=== PATIENT | female | born 2005 | race Caucasian/White ===

== ENCOUNTER 2023-09-24 13:02 | Inpatient (IN) ==
[2023-09-24] MEDS ORDERED: SODIUM CHLORIDE 0.9% 1,000 ML IV ONE ×2 (13:44→16:29)
[2023-09-24] MEDS ORDERED: LORazepam 2 MG/1 ML VIAL IV STA ×2 (13:50→21:07)
--- NOTE | 2023-09-24 13:54 | Emergency Department Note ---
Impression & Plan Rhabdomyolysis, Elevated LFTs, Anxiety ED Provider Note Name: BLANCA CABEZAS Age: 18 Sex: Female Arrives Via: Walk-In Informant: Patient, friend, mother (via phone until mother arrived several hours later) ED Provider: Satinder Penaloza MD Chief Complaint: Bilateral leg and back pain Impression: As per impression above Medical Decision Making: Very pleasant 18-year-old female with history of anxiety arrives for evaluation of severe bilateral leg pain and back pain. She has been tachycardic on arrival and by examination is quite dehydrated. She also is quite anxious about all of this. She was given some IV Ativan see that would help with spasm though continues to have discomfort. She ended up receiving 2 more doses of IV Dilaudid for pain control with relatively good result. She was given initial liter of fluid followed by a liter of little while later. Initial labs took some time to return as her CK was so significantly elevated and had to be dilated. Given the CK of 45,000 this is consistent with rhabdomyolysis. Main etiology is likely her doing a spin class 2 days ago along with possibly some underlying viral like illness and dehydration to begin with. Had a long discussion with the patient as well as friend and mother once she arrived regarding plan for hospitalization IV fluids and monitoring. Hospitalist in to evaluate as well. I do not feel patient's symptoms are consistent with PE or DVT and there is no evidence of dissection either. She is not having any evidence of bacterial infection nor does she have current evidence of renal injury. Triage/Nursing Notes reviewed by Me Differential:Rhabdomyolysis, myositis, Guillain-Werner, vascular issue, electrolyte imbalance, renal failure, sepsis, many other pathologies considered Vital Signs: reviewed and remarkable for tachycardia Interventions: Normal saline bolus 1 L IV x2, Ativan 1 mg IV, Dilaudid 1 mg IV x2 Labs:ED labs Reviewed by me and remarkable for CK 45,000 other laboratory work-up benign Cardiac/Tele Monitoring: Cardiac Monitoring: An Order was placed for continuous cardiac monitoring. The monitor shows a rate of 110 with a sinus tach rhythm. Consults:Dr. Bowen of the [facility] service Plan: Disposition:Hospitalization. Condition: Good History of Present Illness: 18-year-old female arrives for evaluation of muscle spasms and pain. Patient states that she was spinning class II days ago. Following this she was having pretty bad muscle cramping. Today noticed increasing blood in her urine. Associated with mild nausea. Muscles are quite painful in her legs. Denies any specific bilateral back pain/flank pain. Denies any vomiting, chest pain, shortness of breath, fevers, chills, runny nose, palpitations, syncope or other concerning signs or symptoms. No significant past medical history other than she had sepsis due to a labial abscess x2. Past Medical History:No significant past medical history though does note previous hospitalization for sepsis Home Medications:No daily medications Allergies:No known drug allergy Vitals:Blood Pressure: 133/76, Pulse 110, RR 16, T 36.5C, O2 100% on RA Physical Exam: GENERAL: Patient is anxious appearing and in mild distress. RESPIRATORY: No dyspnea. Clear to auscultation and equal bilaterally. CARDIOVASCULAR: Tachycardia.No murmur appreciated. GASTROINTESTINAL: Abdomen soft, non-tender, no peritonitis. BACK: No midline tenderness, no CVA tenderness EXTREMITIES: Normal motion all extremities, no cyanosis, no edema. NEUROLOGIC: Alert and oriented. No focal neurologic deficits appreciated SKIN: No rash, no jaundice, no diaphoresis. PSYCH: Appropriate GCS: 15 ED Course: Times/Reassessments: Multiple repeat evaluation patient stable with waxing and waning discomfort worse with trying to ambulate. She and mother are comfortable with plan for hospitalization Satinder Penaloza MD Past Med/Surg History Social History Smoking Status: Never smoker Preferred Language: Khmer Communication Ability: Effective Assistive Devices: None Allergies Allergies Allergy/AdvReac Type Severity Reaction Status Date / Time Penicillins Allergy Unknown CHILDHOOD Unverified 09/24/23 14:24 ALLERGY Home Meds Home Medications Medication Instructions Recorded Confirmed acetaminophen 500 mg tablet 500 mg PO Q6H PRN Pain 09/24/23 09/24/23 ibuprofen 200 mg tablet 200 mg PO Q6H PRN Pain 09/24/23 09/24/23 magnesium 250 mg tablet 250 mg PO DAILY 09/24/23 09/24/23 Results & Data (ED) Vital Signs Vital Signs - 24 hr 09/24/23 14:42 09/24/23 14:45 09/24/23 14:46 Pulse Rate 102 H Pulse Rate [Finger] 98 H Pulse Rate from SpO2 Sensor 100 H Pulse Rhythm [Finger] Regular Respiratory Rate 19 18 Respiratory Effort / Characteristics Non-Labored Spontaneous Respiratory Depth Normal Respiratory Pattern Regular Blood Pressure 144/93 H 145/88 H Blood Pressure [Left Arm] 145/88 H Blood Pressure Mean 107 107 Blood Pressure Mean [Left Arm] 107 Blood Pressure Position [Left Arm] Sitting Pulse Oximetry 100 99 Oxygen Delivery Method Room Air 09/24/23 15:00 09/24/23 16:00 Pulse Rate 93 H 95 H Pulse Rate [Finger] Pulse Rate from SpO2 Sensor 93 H 93 H Pulse Rhythm [Finger] Respiratory Rate 19 24 Respiratory Effort / Characteristics Respiratory Depth Respiratory Pattern Blood Pressure 127/80 Blood Pressure [Left Arm] Blood Pressure Mean 95 Blood Pressure Mean [Left Arm] Blood Pressure Position [Left Arm] Pulse Oximetry 97 98 Oxygen Delivery Method Laboratory Data 09/25/23 04:32 09/25/23 04:32 Lab Results 09/24/23 Range/Units 13:34 WBC 13.66 H (4.8-10.8) K/ul RBC 4.98 (4.20-5.40) M/uL Hgb 15.6 (12.0-16.0) g/dl Hct 44.3 (37.0-47.0) % MCV 89.0 (80.0-100.0) fL MCH 31.3 (25.0-34.0) pg MCHC 35.2 (32.0-36.0) g/dL RDW Std Deviation 39.0 (36.4-46.3) fL RDW Coeff of Jeff 12.0 (11.5-14.5) % Plt Count 337 (130-400) K/uL MPV 11.1 (9.4-12.4) fL Immature Gran % (Auto) 0.6 % Neut % (Auto) 74.5 % Lymph % (Auto) 17.7 % [place] % (Auto) 6.6 % Eos % (Auto) 0.2 % Baso % (Auto) 0.4 % Neut # (Auto) 10.17 H (1.40-6.50) K/uL Lymph # (Auto) 2.42 (1.20-3.40) K/uL [place] # (Auto) 0.90 H (0.11-0.59) K/uL Eos # (Auto) 0.03 (0.00-0.50) K/uL Baso # (Auto) 0.06 (0.00-0.20) K/uL Immature Gran # (Auto) 0.08 (0.01-0.20) K/uL PT 11.0 (9.0-12.0) Seconds INR 1.0 (0.9-1.1) APTT 27.8 (21.0-31.0) Seconds PTT Ratio 1.0 Sodium 137 (136-145) mmol/L Potassium 3.9 (3.5-5.1) mmol/L Chloride 103 (98-107) mmol/L Carbon Dioxide 23 (21-32) mmol/L Anion Gap 11 (3-11) BUN 8 (6-23) mg/dl Creatinine 0.79 (0.6-1.2) mg/dl Est Cr Clr Drug Dosing 129.5 ml/min Est GFR ( Amer) 124.9 ml/min Est GFR (Non-Af Amer) 107.8 ml/min BUN/Creatinine Ratio 10.1 (10-20) Glucose 89 (70-99(Fasting)) mg/dl Calcium 9.7 (8.6-10.3) mg/dl Magnesium 2.0 (1.7-2.4) mg/dl Total Bilirubin 1.6 H (0.2-1.0) mg/dl Direct Bilirubin 0.2 (0-0.2) mg/dl AST 679 H (13-39) U/L ALT 106 H (7-52) U/L Alkaline Phosphatase 67 (34-104) U/L Total Creatine Kinase 34898 H (26-192) U/L Troponin I High Sens 8.4 (0-14) pg/ml Total Protein 8.3 (6.0-8.3) gm/dl Albumin 5.0 (3.4-5.0) gm/dl Urine Color Brown Urine Appearance Slightly Cloudy (Clear) Urine pH (4.5-7.5) Ur Specific [place] 1.026 (1.000-1.030) Urine Protein (Negative) Urine Glucose (UA) (Negative) Urine Ketones (Negative) Urine Blood (Negative) Urine Nitrite (Negative) Urine Bilirubin (Negative) Urine Urobilinogen (Negative) Ur Leukocyte Esterase (Negative) Urine RBC 0-4 (0-4) /hpf Urine WBC 5-10 H (0-5) /hpf Ur Epithelial Cells 20-30 H (0-5) /lpf Urine Bacteria 1+ H (Negative) Granular Casts 1-5 H (0) /lpf Administered Medications Hydromorphone HCl (Hydromorphone Inj 0.5 Mg/0.5 Ml Syr) 0.5 mg IV Q4H PRN PRN Reason: Pain Scale 4,5,6 Stop: 10/09/23 11:06 Last Admin: 09/25/23 13:28 Dose: 0.5 mg Documented By: SARITA Lactated Ringer's (Lr) 1,000 mls @ 250 mls/hr IV .Q4H JEANE Stop: 10/25/23 08:14 Last Admin: 09/25/23 13:29 Dose: 250 mls/hr Documented By: Infusion: 09/25/23 13:22 Dose: Infused Documented By: Admin: 09/25/23 09:22 Dose: 250 mls/hr Documented By: SARITA Ondansetron HCl (Ondansetron Inj 2 Mg/Ml 2 Ml Vial) 4 mg IV Q6H PRN PRN Reason: Nausea Stop: 10/25/23 11:06 Last Admin: 09/25/23 11:25 Dose: 4 mg Documented By: SARITA Discontinued Medications Hydromorphone HCl (Hydromorphone Inj 1 Mg/Ml Syringe) 1 mg IV NOW STA Stop: 09/24/23 14:39 Last Admin: 09/24/23 14:42 Dose: 1 mg Documented By: MECHELLE Hydromorphone HCl (Hydromorphone Inj 1 Mg/Ml Syringe) 1 mg IV NOW STA Stop: 09/24/23 16:00 Last Admin: 09/24/23 16:13 Dose: 1 mg Documented By: MAJO Sodium Chloride (Nss) 1,000 mls @ 999 mls/hr IV .Q1H1M ONE Stop: 09/24/23 14:44 Last Infusion: 09/24/23 15:17 Dose: Infused Documented By: Admin: 09/24/23 13:58 Dose: 999 mls/hr Documented By: MECHELLE Sodium Chloride (Nss) 1,000 mls @ 999 mls/hr IV .Q1H1M ONE Stop: 09/24/23 17:29 Last Infusion: 09/24/23 18:06 Dose: Infused Documented By: Admin: 09/24/23 16:57 Dose: 999 mls/hr Documented By: MAJO Lactated Ringer's (Lr) 1,000 mls @ 150 mls/hr IV .Q6H40M JEANE Stop: 09/25/23 08:00 Last Infusion: 09/25/23 14:08 Dose: Infused Documented By: Admin: 09/25/23 07:27 Dose: 150 mls/hr Documented By: Infusion: 09/25/23 07:27 Dose: Infused Documented By: Admin: 09/25/23 01:16 Dose: 150 mls/hr Documented By: Infusion: 09/25/23 01:11 Dose: Infused Documented By: Admin: 09/24/23 18:30 Dose: 150 mls/hr Documented By: VANIA Lorazepam (Lorazepam 2 Mg/1 Ml Vial) 1 mg IV NOW STA Stop: 09/24/23 13:51 Last Admin: 09/24/23 14:05 Dose: 1 mg Documented By: MECHELLE Lorazepam (Lorazepam 2 Mg/1 Ml Vial) 0.5 mg IV NOW STA Stop: 09/24/23 21:08 Last Admin: 09/24/23 21:42 Dose: 0.5 mg Documented By: EM Morphine Sulfate (Morphine Sulfate 2 Mg/Ml [place]) 2 mg IV Q4H PRN PRN Reason: Pain (5+) Stop: 10/08/23 18:29 Last Admin: 09/25/23 09:24 Dose: 2 mg Documented By: Admin: 09/25/23 04:59 Dose: 2 mg Documented By: Admin: 09/25/23 01:18 Dose: 2 mg Documented By: Admin: 09/24/23 19:40 Dose: 2 mg Documented By: EM Ondansetron HCl (Ondansetron Inj 2 Mg/Ml 2 Ml Vial) 4 mg IV NOW STA Stop: 09/24/23 17:08 Last Admin: 09/24/23 17:12 Dose: 4 mg Documented By: MAJO Discharge Plan Visit Data Chief Complaint: Hematuria Stated Complaint: SEVERE MUSCLE ACHES, HEMATURIA, RHABDOMYOLYSIS? ED Provider: Satinder Penaloza Discharge Problem: Rhabdomyolysis, Elevated LFTs, Anxiety Patient Disposition: Admitted As Inpatient Discharge Instructions Interventions: ED Discharge Assessment Last Done: 09/24/23 18:14
[2023-09-24] MEDS ORDERED: HYDROmorphone INJ 1 MG/ML SYRINGE IV STA ×2 (14:38→15:59)
[2023-09-24 14:46] LABS: Appearance Urine Slightly Cloudy (Clear); Basophils # (auto) 0.06 K/uL (0.00-0.20); Basophils % (auto) 0.4 %; Color Urine Brown; Eosinophils # (auto) 0.03 K/uL (0.00-0.50); Eosinophils % (auto) 0.2 %; Hematocrit (blood only) 44.3 % (37.0-47.0); Hemoglobin 15.6 g/dl (12.0-16.0); Immature Granulocytes # (auto) 0.08 K/uL (0.01-0.20); Immature Granulocytes % (auto) 0.6 %; Lymphocytes # (auto) 2.42 K/uL (1.20-3.40); Lymphocytes % (auto) 17.7 %; Mean Corpuscular Hemoglobin 31.3 pg (25.0-34.0); Mean Corpuscular Hgb Conc 35.2 g/dL (32.0-36.0); Mean Platelet Volume 11.1 fL (9.4-12.4); Monocytes % (auto) 6.6 %; Neutrophils # (auto) 10.17 K/uL (1.40-6.50); Neutrophils % (auto) 74.5 %; Platelet Count 337 K/uL (130-400); Red Blood Count 4.98 M/uL (4.20-5.40); Specific Gravity Urine 1.026 (1.000-1.030); White Blood Count 13.66 K/ul (4.8-10.8)
[2023-09-24 14:49] LABS: Bacteria Urine 1+ (Negative); Epithelial Cell Urine 20-30 /lpf (0-5); RBC Urine 0-4 /hpf (0-4)
[2023-09-24 14:50] LABS: BUN Creatinine Ratio 10.1 (10-20); Calcium 9.7 mg/dl (8.6-10.3); Creatinine Clr Calc Pharmacy 129.5 ml/min; Est GFR (African American) 124.9 ml/min; Est GFR (Non-African American) 107.8 ml/min; Potassium 3.9 mmol/L (3.5-5.1)
[2023-09-24 14:56] LABS: Troponin I High Sensitivity 8.4 pg/ml (0-14)
[2023-09-24 15:03] LABS: Partial Thromboplastin Time 27.8 Seconds (21.0-31.0)
[2023-09-24 16:25] LABS: Bilirubin Direct 0.2 mg/dl (0-0.2); Bilirubin,Total 1.6 mg/dl (0.2-1.0); Total Protein 8.3 gm/dl (6.0-8.3)
--- NOTE | 2023-09-24 16:37 | History & Physical Report ---
Date of Service September 24, 2023 Assessment & Plan (1) Rhabdomyolysis: Plan: -Admit to med/surge -Currently stable with improving leg pain and stable urine output -At this time her current presentation is likely due to her recent spin class on 09/22 after not attending a class for 2+ years -An acute hepatitis panel has been ordered by the ED, will follow -Patient's renal function is WNL, LFT's are currently elevated -Repeat CK is in process as previous draws were too concentrated, will continue to trend CK moving forward -S/P 1L NSS in the ED, 2nd L NSS will be started shortly -Will continue treatment with LR after her 2nd L of NSS is complete -Continue to monitor intake/output q4h -Hold Acetaminophen and NASAID's at this time -Will start BL SCD's for DVT PPX if she can tolerate -Regular diet -AM CBC, CMP, Mag, PT/INR (2) Elevated LFTs: Plan: -Likely multifactorial due to Rhabdo and recent Acetaminophen use for leg pain -Denies abdominal discomfort -Will follow Hepatitis panel ordered by the ED -Denies recent Alcohol use -Continue treatment of rhabdo, hold acetaminophen and other nephrotoxic agents for now -Trend daily LFT's (3) Anxiety: Plan: -Currently denies need for hydroxyzine or Klonopin, will hold for now Plan The patient was discussed with Dr. Bowen at the time of the admission History of Present Illness Chief Complaint: Hematuria, muscle aches Primary Care Provider: [facility] [place] is a 18 year old female with no significant PMH who presented to the [facility] ED on 09/24 from [facility] due to concerns for Rhabdomyolysis. She initially presented to [facility] due to progressive muscle aches and hematuria after attending a spinning class earlier this week. She was initially tachycardic at 110 but otherwise stable. Labs were significant for a leukocytosis of 13 with neutrophil count of 10, stable renal function, total bili of 1.6 with direct bili WNL, AST of 679, ALT of 106, total CK pending due to multiple samples that required increased dilution, and UA with brown color, 1-5 granular casts, 1+ bacteria, 5-10 WBC, and 20-30 epithelial cells. Prior to admission the patient was given 1L NSS, 1mg IV ativan, 2 doses 1mg IV dilaudid, and ordred another 1L NSS. At the time of the exam the patient was sitting in bed in no acute distress with her friend sitting bedside. The patient states that she had been in her normal state of health when she went to a spin class on 09/22. She states that this was the first spine class she has attended in approximately 2 years, the class lasted for approximately 45 min. She states that she had what she would consider a normal amount of LE soreness the following day. Over the past 48 hours she has had increased LE pain/cramping. She has been alternating Tylenol/Ibuprofen over the past 48 hours. She had approximately 4-5 doses of 600-1200 mg Acetaminophen over the past 48 hours. This am she developed gross hematuria/brown urine, prompting her to be evaluated at [facility]. She intermittently vapes nicotine cartridges, occasionally smokes Marijuana, and drinks alcohol approximately 1-2 times a month. She denies any alcohol use this week. He LE pain is much improved compared to arrival and she is having consistent urine output at this time. She is prescribed prn Klonopin and Hydrox yzine but has not used either in multiple weeks. She denies current fever, chills, chest pain, SOB, and pain, vomiting, dysuria, diarrhea, melena, and recent trauma. Please refer to Dr. Bowen's attestation for any changes to the treatment plan Allergies Allergy/AdvReac Type Severity Reaction Status Date / Time Penicillins Allergy Unknown CHILDHOOD Unverified 09/24/23 14:24 ALLERGY Home Medications Medication Instructions Recorded Confirmed Type acetaminophen 500 mg tablet 500 mg PO Q6H PRN Pain 09/24/23 09/24/23 History ibuprofen 200 mg tablet 200 mg PO Q6H PRN Pain 09/24/23 09/24/23 History magnesium 250 mg tablet 250 mg PO DAILY 09/24/23 09/24/23 History Past Med/Surg History Social History Smoking Status: Never smoker Preferred Language: Serbian Physical Exam Physical Exam: Physical Exam: General: In no acute distress, stated age, well-nourished, non-toxic appearing HEENT: Normocephalic, atraumatic, no scleral icterus, pupils around round, symmetrical, and reactive to light, moist mucus membranes, trachea midline, no thyromegaly Chest/Pulm: No respiratory distress, symmetrical chest expansion, clear breath sounds throughout Cardiac: RRR, no murmurs noted Abdomen: Negative for ascites and bruising, normoactive bowel sounds, soft, non-tender to palpation throughout Musculoskeletal: Symmetrical and without signs of acute trauma, upper and lower extremities with full ROM, no atrophy, spasticity, or flaccidity, no significant tenderness to palpation of the [facility] Extremities: Radial, dorsalis pedis, and posterior tibial pulses are intact and symmetrical, no edema noted in the [facility] Skin: Warm, dry, no rashes , lesions, or scars noted Neuro: Alert and oriented to person, place, month, year, and president, no focal defects,no tremors noted Psych: No acute distress, calm and cooperative during the exam Results & Data Results & Data Vital Signs (Past 12 Hours) Vital Signs Temp Pulse Pulse Resp BP BP Pulse Ox 09/24/23 14:46 98 H 18 145/88 H 99 09/24/23 14:14 87 09/24/23 14:02 96 H 18 142/100 H 98 09/24/23 13:11 36.5 C 110 H 16 133/76 100 O2 Del Method 09/24/23 14:46 Room Air 09/24/23 14:14 09/24/23 14:02 Room Air 09/24/23 13:11 Room Air Laboratory Results Abnormal lab results 09/24/23 Range/Units 13:34 WBC 13.66 H (4.8-10.8) K/ul Neut # (Auto) 10.17 H (1.40-6.50) K/uL [place] # (Auto) 0.90 H (0.11-0.59) K/uL Total Bilirubin 1.6 H (0.2-1.0) mg/dl AST 679 H (13-39) U/L ALT 106 H (7-52) U/L Urine WBC 5-10 H (0-5) /hpf Ur Epithelial Cells 20-30 H (0-5) /lpf Urine Bacteria 1+ H (Negative) Granular Casts 1-5 H (0) /lpf ECG Additional Comments: Will obtain at the time of the admission Code Status & VTE Plan Code Status Full code VTE Prophylaxis Plan VTE Prophylaxis will be ordered: Yes Supervising Physician Co-Signing Physician Notes I personally saw and examined the patient. I verified all san points and agree with Rob Garg PA-C with the following exceptions and/or additions: 18 year old female presents to the ER with brown urine. Went to spin class on Thursday and having bilateral thigh pain since then. Brown urine started today. O/E HS RRR, no murmurs, Chest CTAB, Abdo SNT, generalized thigh pain A/P Rhabdomyolysis - LR @ 150ml/hr overnight. Monitor urine output - currently have good UO, plan to match rate of fluids with UO. No calf pain for concern for compartment syndrome. AST/ALT consistent with rhabomyolysis. PG Care Time/CCT Total # of Minutes Spent Total Time Spent with Patient: Total time spent is greater than 50% in coordination of care (as documented) at patient's floor/unit and/or counseling patient: [place] [address] INT INP/OBS CARE 2/55MIN Patient Type New Medical Decision Making Moderate Complexity Diagnoses Rhabdomyolysis M62.82 Elevated LFTs R79.89 Anxiety F41.9
[2023-09-24] MEDS ORDERED: ONDANSETRON INJ 2 MG/ML 2 ML VIAL IV STA (17:07)
[2023-09-24] MEDS: LACTATED RINGER'S 1,000 ML IV SCH (18:30)
[2023-09-24] MEDS: MoRPHine SULFATE 2 MG/ML CARP IV PRN (19:40)
[2023-09-25] MEDS: LACTATED RINGER'S 1,000 ML IV SCH ×6 (01:16→20:43)
[2023-09-25] MEDS: MoRPHine SULFATE 2 MG/ML CARP IV PRN ×3 (01:18→09:24)
[2023-09-25 05:02] LABS: Basophils # (auto) 0.03 K/uL (0.00-0.20); Basophils % (auto) 0.3 %; Eosinophils # (auto) 0.18 K/uL (0.00-0.50); Hematocrit (blood only) 37.1 % (37.0-47.0); Hemoglobin 12.9 g/dl (12.0-16.0); Immature Granulocytes # (auto) 0.05 K/uL (0.01-0.20); Immature Granulocytes % (auto) 0.6 %; Lymphocytes # (auto) 3.06 K/uL (1.20-3.40); Lymphocytes % (auto) 33.8 %; Mean Corpuscular Hemoglobin 31.2 pg (25.0-34.0); Mean Corpuscular Hgb Conc 34.8 g/dL (32.0-36.0); Mean Corpuscular Volume 89.6 fL (80.0-100.0); Mean Platelet Volume 10.5 fL (9.4-12.4); Monocytes # (auto) 0.68 K/uL (0.11-0.59); Monocytes % (auto) 7.5 %; Neutrophils # (auto) 5.06 K/uL (1.40-6.50); Neutrophils % (auto) 55.8 %; Platelet Count 257 K/uL (130-400); RDW Coefficient of Variation 12.2 % (11.5-14.5); RDW Standard Deviation 39.8 fL (36.4-46.3); Red Blood Count 4.14 M/uL (4.20-5.40); White Blood Count 9.06 K/ul (4.8-10.8)
[2023-09-25 05:20] LABS: Prothrombin Time 11.4 Seconds (9.0-12.0)
[2023-09-25 06:10] LABS: Alanine Aminotransferase 132 U/L (7-52); Albumin Globulin Ratio 1.6 (0.9-2); Albumin Level 3.6 gm/dl (3.4-5.0); Alkaline Phosphatase 47 U/L (34-104); Anion Gap 3 (3-11); Aspartate Aminotransferase 787 U/L (13-39); Bilirubin,Total 1.8 mg/dl (0.2-1.0); Blood Urea Nitrogen 6 mg/dl (6-23); Calcium 8.4 mg/dl (8.6-10.3); Carbon Dioxide 26 mmol/L (21-32); Chloride 108 mmol/L (98-107); Creatine Kinase 72800 U/L (26-192); Creatinine Clr Calc Pharmacy 170.5 ml/min; Est GFR (African American) > 150.0 ml/min; Est GFR (Non-African American) 131.2 ml/min; Globulin 2.2 gm/dl (2.5-4.0); Glucose 90 mg/dl (70-99(Fasting)); Potassium 4.4 mmol/L (3.5-5.1); Sodium 137 mmol/L (136-145); Total Protein 5.8 gm/dl (6.0-8.3)
--- NOTE | 2023-09-25 08:06 | Hospitalist Progress Note ---
Date of Service September 25, 2023 Assessment & Plan (1) Rhabdomyolysis: Plan: severe rhabdomyolysis, induced by overexertion at spin class total CK in ED at least 91,000, improved [place] 72[place] [address] today with aggressive IV fluids. currently P creatinine stable was 0.79 at presentation and 0.6 today AST and ALT elevation are from the muscle breakdown rather than from liver injury hyperchloremic after NS resuscitation in ED, agree with changing fluids to LR - ordered 250 mL/h, target UOP of 200-300 mL/h -monitor BMP and CK closely - has been requiring IV morphine for treatment of severe muscle pain - changed to hydromorphone IV for nausea/vomiting, discussed avoiding and trying methocarbamol - no evidence of compartment syndrome (2) Elevated LFTs: Plan: AST/ALT elevated from muscle source liver dysfunction occurs in 25% of cases of rhabdomyolysis of concern was taking acetaminophen and bilirubin is mildly elevated. APAP level was not checked on admission. obtain further history monitor CMP and INR (normal at 1.0), until AST/ALT/bili improving (3) Anxiety: Plan: -Currently denies need for hydroxyzine or Klonopin, will hold for now Plan DVT ppx - SCDs Admission and Anticipated Discharge Date Admission Date: September 24, 2023 Subjective spin class 09/22. alternating APAP and ibuprofen [employer]. presented to urgent care with tea colored urine and muscle soreness. Physical Exam Physical Exam: PHYSICAL EXAMINATION Last 24h vital signs reviewed, see documentation in flowsheet General: comfortable appearing, no distress HEENT: Normocephalic, atraumatic, pupils round and equal, sclerae anicteric, no conjunctival injection, moist mucus membranes Lungs: Normal respiratory effort. Clear to auscultation bilaterally. No RRW Heart: Regular rate and rhythm, no murmurs. No JVD Abdomen: Soft, nontender, nondistended. Bowel sounds present. Extremities: Warm, dry, well-perfused. Thighs are full but not severely swollen, mildly tender when squeezed, calves are not tight or swollen. LE wp and DP pulses intact Neuro: Alert and oriented x 4, face symmetric, moves 4 extremities well Psych: Normal affect and behavior Results & Data Results & Data Vital Signs (Past 12 Hours) Vital Signs Temp Pulse Resp BP Pulse Ox O2 Del Method 09/24/23 23:05 36.4 C L 88 18 119/82 99 Room Air PG Care Time/CCT Total # of Minutes Spent Total Time Spent with Patient: Total time spent is greater than 50% in coordination of care (as documented) at patient's floor/unit and/or counseling patient: Coding Level of Care Code 47428 SUB INP/OBS CARE 3/50MIN Diagnoses Rhabdomyolysis M62.82 Elevated LFTs R79.89 Anxiety F41.9
[2023-09-25] MEDS ORDERED: PROCHLORPERAZINE 5 MG in SYRINGE 4 ML IV PRN (11:13)
[2023-09-25] MEDS: ONDANSETRON INJ 2 MG/ML 2 ML VIAL IV PRN (11:25)
--- NOTE | 2023-09-25 11:42 | Electrocardiogram Report ---
Test Reason : Blood Pressure : / mmHG Vent. Rate : 093 BPM Atrial Rate : 093 BPM P-R Int : 160 ms QRS Dur : 094 ms QT Int : 372 ms P-R-T Axes : 028 093 007 degrees QTc Int : 462 ms Normal sinus rhythm Rightward axis Incomplete right bundle branch block Borderline ECG No previous ECGs available Confirmed by Jhony Sanchez ([id number]) on 09/25/2023 11:42:08 AM Referred By: REFERRED SELF Confirmed By:Georges Sanchez
[2023-09-25] MEDS: HYDROmorphone INJ 0.5 MG/0.5 ML SYR IV PRN ×2 (13:28→20:44)
[2023-09-25] MEDS ORDERED: METHOCARBAMOL 500 MG TABLET PO PRN ×2 (13:30→13:53)
[2023-09-26] MEDS: LACTATED RINGER'S 1,000 ML IV SCH ×5 (00:54→17:03)
[2023-09-26] MEDS: HYDROmorphone INJ 0.5 MG/0.5 ML SYR IV PRN ×5 (00:57→20:02)
[2023-09-26 07:04] LABS: Basophils # (auto) 0.03 K/uL (0.00-0.20); Basophils % (auto) 0.4 %; Eosinophils # (auto) 0.22 K/uL (0.00-0.50); Eosinophils % (auto) 2.6 %; Hematocrit (blood only) 37.8 % (37.0-47.0); Hemoglobin 13.1 g/dl (12.0-16.0); Immature Granulocytes # (auto) 0.05 K/uL (0.01-0.20); Immature Granulocytes % (auto) 0.6 %; Lymphocytes # (auto) 2.51 K/uL (1.20-3.40); Mean Corpuscular Hemoglobin 31.3 pg (25.0-34.0); Mean Corpuscular Hgb Conc 34.7 g/dL (32.0-36.0); Mean Corpuscular Volume 90.4 fL (80.0-100.0); Mean Platelet Volume 10.6 fL (9.4-12.4); Monocytes # (auto) 0.71 K/uL (0.11-0.59); Monocytes % (auto) 8.5 %; Neutrophils # (auto) 4.84 K/uL (1.40-6.50); Neutrophils % (auto) 57.9 %; Platelet Count 249 K/uL (130-400); RDW Coefficient of Variation 11.9 % (11.5-14.5); RDW Standard Deviation 39.3 fL (36.4-46.3); Red Blood Count 4.18 M/uL (4.20-5.40); White Blood Count 8.36 K/ul (4.8-10.8)
[2023-09-26 07:54] LABS: Alanine Aminotransferase 184 U/L (7-52); Albumin Globulin Ratio 1.6 (0.9-2); Albumin Level 3.8 gm/dl (3.4-5.0); Alkaline Phosphatase 47 U/L (34-104); Anion Gap 5 (3-11); Aspartate Aminotransferase 910 U/L (13-39); BUN Creatinine Ratio 6.9 (10-20); Bilirubin,Total 1.7 mg/dl (0.2-1.0); Blood Urea Nitrogen 4 mg/dl (6-23); Calcium 8.9 mg/dl (8.6-10.3); Carbon Dioxide 27 mmol/L (21-32); Chloride 106 mmol/L (98-107); Creatinine Clr Calc Pharmacy 172.7 ml/min; Est GFR (African American) > 150.0 ml/min; Est GFR (Non-African American) 132.7 ml/min; Globulin 2.4 gm/dl (2.5-4.0); Glucose 93 mg/dl (70-99(Fasting)); Potassium 4.2 mmol/L (3.5-5.1); Sodium 138 mmol/L (136-145); Total Protein 6.2 gm/dl (6.0-8.3)
[2023-09-26 07:55] LABS: INR 1.1 (0.9-1.1); Prothrombin Time 11.5 Seconds (9.0-12.0)
[2023-09-26 08:32] LABS: Creatine Kinase 68600 U/L (26-192)
[2023-09-26] MEDS: ONDANSETRON INJ 2 MG/ML 2 ML VIAL IV PRN (09:19)
[2023-09-26 11:17] LABS: HBSAG NON-REACTIVE (NON-REACTIVE); Hepatitis A Antibody IgM NON-REACTIVE (NON-REACTIVE); Hepatitis B Core Antibody IgM NON-REACTIVE (NON-REACTIVE)
--- NOTE | 2023-09-26 16:42 | Hospitalist Progress Note ---
Date of Service September 26, 2023 Assessment & Plan (1) Rhabdomyolysis: Plan: severe rhabdomyolysis, induced by overexertion at spin class [place] in ED [place] 91,[place] [id number] today with aggressive IV fluids. Is at plateau currently. currently P creatinine stable was 0.79 at presentation and 0.6 on 09/26 AST and ALT elevation are from the muscle breakdown rather than from liver injury - similar but not improved cont LR - ordered 250 mL/h, target UOP of 200-300 mL/h. currently 300/h -monitor BMP and CK closely -getting infrequent doses 0.5 mg IV hydromorphone and methocarbamol prn muscle pain -no evidence of compartment syndrome (2) Elevated LFTs: Plan: AST/ALT elevated from muscle source liver dysfunction occurs in 25% of cases of rhabdomyolysis of concern was taking acetaminophen and bilirubin is mildly elevated. APAP level was not checked on admission. obtain further history monitor CMP and INR (normal at 1.0), until AST/ALT/bili improving (3) Anxiety: Plan: -Currently denies need for hydroxyzine or Klonopin, will hold for now Plan DVT ppx - SCDs Admission and Anticipated Discharge Date Admission Date: September 24, 2023 Subjective feels ok, legs starting to feel less sore, some nasusea this am no emesis, urinating at least 12 oz per hour, urine is light yellow clear no numbness or tingling of LE Physical Exam Physical Exam: PHYSICAL EXAMINATION Last 24h vital signs reviewed, see documentation in flowsheet Exam unchanged 09/26 General: comfortable appearing, no distress HEENT: Normocephalic, atraumatic, pupils round and equal, sclerae anicteric, no conjunctival injection, moist mucus membranes Lungs: Normal respiratory effort. Heart: def Abdomen: Soft, nondistended. Extremities: Warm, dry, well-perfused. Thighs are full but not severely swollen, mildly tender when squeezed, calves are not tight or swollen. LE wp and DP pulses intact Neuro: Alert and oriented x 4, face symmetric, moves 4 extremities well Psych: Normal affect and behavior Results & Data Results & Data Vital Signs (Past 12 Hours) Vital Signs Temp Pulse Resp BP BP Pulse Ox O2 Del Method 09/26/23 15:33 36.7 C 90 16 125/83 99 Room Air 09/26/23 07:32 36.7 C 87 20 128/82 96 Room Air PG Care Time/CCT Total # of Minutes Spent Total Time Spent with Patient: Total time spent is greater than 50% in coordination of care (as documented) at patient's floor/unit and/or counseling patient: Coding Level of Care Code 34511 SUB INP/OBS CARE 2/35MIN Diagnoses Rhabdomyolysis M62.82 Elevated LFTs R79.89 Anxiety F41.9
[2023-09-26] MEDS: SODIUM CHLORIDE 0.9% 1,000 ML IV SCH ×2 (18:31→22:40)
[2023-09-26 19:55] LABS: INR 1.1 (0.9-1.1); Prothrombin Time 11.5 Seconds (9.0-12.0)
[2023-09-26 20:08] LABS: BUN Creatinine Ratio 7.8 (10-20); Calcium 9.3 mg/dl (8.6-10.3); Creatinine Clr Calc Pharmacy 156.8 ml/min; Est GFR (African American) 148.9 ml/min; Est GFR (Non-African American) 128.5 ml/min; Potassium 3.7 mmol/L (3.5-5.1)
[2023-09-26 20:27] LABS: Albumin Globulin Ratio 1.6 (0.9-2); Albumin Level 4.1 gm/dl (3.4-5.0); Bilirubin,Total 1.4 mg/dl (0.2-1.0); Globulin 2.6 gm/dl (2.5-4.0); Phosphorus 4.1 mg/dl (2.5-4.9); Total Protein 6.7 gm/dl (6.0-8.3); Uric Acid 4.1 mg/dl (2.6-7.2)
[2023-09-27] MEDS: HYDROmorphone INJ 0.5 MG/0.5 ML SYR IV PRN ×5 (00:14→17:56)
[2023-09-27] MEDS: SODIUM CHLORIDE 0.9% 1,000 ML IV SCH ×6 (01:32→23:26)
[2023-09-27 07:02] LABS: Anion Gap 5 (3-11); BUN Creatinine Ratio 10.2 (10-20); Blood Urea Nitrogen 6 mg/dl (6-23); Calcium 8.3 mg/dl (8.6-10.3); Carbon Dioxide 27 mmol/L (21-32); Chloride 107 mmol/L (98-107); Creatinine Clr Calc Pharmacy 170.1 ml/min; Est GFR (African American) > 150.0 ml/min; Est GFR (Non-African American) 131.9 ml/min; Glucose 98 mg/dl (70-99(Fasting)); Sodium 139 mmol/L (136-145)
[2023-09-27 07:42] LABS: Alanine Aminotransferase 227 U/L (7-52); Albumin Globulin Ratio 1.6 (0.9-2); Albumin Level 3.6 gm/dl (3.4-5.0); Alkaline Phosphatase 48 U/L (34-104); Aspartate Aminotransferase 1037 U/L (13-39); Bilirubin,Total 1.3 mg/dl (0.2-1.0); Creatine Kinase 65000 U/L (26-192); Globulin 2.2 gm/dl (2.5-4.0); Total Protein 5.8 gm/dl (6.0-8.3)
[2023-09-27 07:55] LABS: Prothrombin Time 11.4 Seconds (9.0-12.0)
--- NOTE | 2023-09-27 08:04 | Hospitalist Progress Note ---
Date of Service September 27, 2023 Assessment & Plan (1) Rhabdomyolysis: Plan: severe rhabdomyolysis, induced by overexertion at spin class total CK in ED [place] 91,[place] [address] with aggressive IV fluids. Back up to 90K overnight but improved to 65K this morning. We should be at the peak/plateau 5d after injury which was 09/22 creatinine stable was 0.79 at presentation and now stable at 0.6 today AST and ALT elevation are from the muscle breakdown rather than from liver injury - both slightly improved today. cont IV NS 250 mL/h, target UOP of 200-300 mL/h. currently remains 300/h -monitor BMP and CK closely -getting infrequent doses 0.5 mg IV hydromorphone and methocarbamol prn muscle pain -no evidence of compartment syndrome (2) Elevated LFTs: Plan: AST/ALT elevated from muscle source liver dysfunction occurs in 25% of cases of rhabdomyolysis of concern was taking acetaminophen and bilirubin is mildly elevated. APAP level was not checked on admission. monitor CMP and INR (normal at 1.0), until AST/ALT/bili improving -bili improved to 1.3 today and AST/ALT trending down (3) Anxiety: Plan: -Currently denies need for hydroxyzine or Klonopin, will hold for now Plan DVT ppx - SCDs Admission and Anticipated Discharge Date Admission Date: September 24, 2023 Subjective bilateral thigh soreness definitely improved urinating every 60-90 min, urine remains light yellow clear no SOB, feels puffy but no overt edema no LE numbness or tingling Physical Exam 2 Physical Exam: PHYSICAL EXAMINATION Last 24h vital signs reviewed, see documentation in flowsheet Exam unchanged 09/27 General: comfortable appearing, no distress HEENT: Normocephalic, atraumatic, pupils round and equal, sclerae anicteric, no conjunctival injection, moist mucus membranes Lungs: Normal respiratory effort. Heart: def Abdomen: Soft, nondistended. Extremities: Warm, dry, well-perfused. Thighs are full but not severely swollen, mildly tender when squeezed, calves are not tight or swollen. LE wp and DP pulses intact Neuro: Alert and oriented x 4, face symmetric, moves 4 extremities well Psych: Normal affect and behavior Results & Data Results & Data Vital Signs (Past 12 Hours) Vital Signs Temp Pulse Resp BP Pulse Ox O2 Del Method 09/26/23 21:26 37.1 C 81 16 121/78 98 Room Air Laboratory Results 09/26/23 06:09 09/27/23 05:58 PG Care Time/CCT Total # of Minutes Spent Total Time Spent with Patient: Total time spent is greater than 50% in coordination of care (as documented) at patient's floor/unit and/or counseling patient: Coding Level of Care Code 40871 SUB INP/OBS CARE 2/35MIN Diagnoses Rhabdomyolysis M62.82 Elevated LFTs R79.89 Anxiety F41.9
[2023-09-27] MEDS: ONDANSETRON INJ 2 MG/ML 2 ML VIAL IV PRN (09:21)
[2023-09-27] MEDS ORDERED: MELATONIN 3 MG TAB PO STA (20:58)
[2023-09-28] MEDS: SODIUM CHLORIDE 0.9% 1,000 ML IV SCH ×6 (03:06→23:35)
[2023-09-28] MEDS: HYDROmorphone INJ 0.5 MG/0.5 ML SYR IV PRN (07:15)
[2023-09-28 08:21] LABS: Anion Gap 6 (3-11); BUN Creatinine Ratio 11.1 (10-20); Blood Urea Nitrogen 6 mg/dl (6-23); Carbon Dioxide 26 mmol/L (21-32); Chloride 107 mmol/L (98-107); Creatinine Clr Calc Pharmacy 185.8 ml/min; Est GFR (African American) > 150.0 ml/min; Est GFR (Non-African American) 135.8 ml/min; Glucose 92 mg/dl (70-99(Fasting)); Potassium 4.2 mmol/L (3.5-5.1); Sodium 139 mmol/L (136-145)
[2023-09-28 08:38] LABS: Alanine Aminotransferase 249 U/L (7-52); Albumin Globulin Ratio 1.6 (0.9-2); Albumin Level 3.9 gm/dl (3.4-5.0); Alkaline Phosphatase 49 U/L (34-104); Aspartate Aminotransferase 775 U/L (13-39); Bilirubin,Total 1.2 mg/dl (0.2-1.0); Creatine Kinase 32069 U/L (26-192); Globulin 2.5 gm/dl (2.5-4.0); Total Protein 6.4 gm/dl (6.0-8.3)
[2023-09-28] MEDS ORDERED: SENNA 8.6 MG TAB PO PRN (11:13)
[2023-09-28] MEDS ORDERED: POLYETHYLENE (MIRALAX) 17 GM PACK PO PRN (11:13)
[2023-09-28] MEDS ORDERED: oxyCODONE HCL IR 5 MG TAB (IMMEDIATE RELEASE) PO PRN (11:13)
[2023-09-28] MEDS ORDERED: bisacodyL 5 MG TABEC PO PRN (11:13)
--- NOTE | 2023-09-28 17:21 | Hospitalist Progress Note ---
Date of Service September 28, 2023 Assessment & Plan (1) Rhabdomyolysis: Plan: severe rhabdomyolysis, induced by overexertion at spin class [place] CK in ED [place] 91,[place] [id number] with aggressive IV fluids. Had second peak to 90K on 09/26 now quickly downtrending 32K today. creatinine stable was 0.79 at presentation and remains stable at 0.54 today AST and ALT elevation are from the muscle breakdown rather than from liver injury - both improved today. cont IV NS 250 mL/h, target UOP of 200-300 mL/h. currently UOP remains at goal of 200-300/h -monitor BMP and CK - ordered for AM -getting infrequent doses 0.5 mg IV hydromorphone and methocarbamol prn muscle pain, added oxycodone po -no evidence of compartment syndrome -expect CK will be <5000 in 48-72h. may be reasonable to send her home once CK<10,000 if she maintains aggressive hydration -counseled on slow/steady resumption of physical activity in a few weeks once soreness completely resolved (2) Elevated LFTs: Plan: AST/ALT elevated from muscle source liver dysfunction occurs in 25% of cases of rhabdomyolysis of concern was taking acetaminophen and bilirubin is mildly elevated. APAP level was not checked on admission. -bili improved to 1.2 today and AST/ALT trending down (3) Anxiety: Plan: -Currently denies need for hydroxyzine or Klonopin, will hold for now Plan DVT ppx - SCDs. Ambulating hourly to the bathroom, low risk. Admission and Anticipated Discharge Date Admission Date: September 24, 2023 Subjective bilateral thigh pain now improving. current worse pain is near R knee, muscle cramping feeling. No dyspnea. Feels swollen all over. Urinating lots hourly Physical Exam Physical Exam: PHYSICAL EXAMINATION Last 24h vital signs reviewed, see documentation in flowsheet Exam unchanged 09/28 General: comfortable appearing, no distress HEENT: Normocephalic, atraumatic, pupils round and equal, sclerae anicteric, no conjunctival injection, moist mucus membranes Lungs: Normal respiratory effort. Heart: def Abdomen: Soft, nondistended. Extremities: Warm, dry, well-perfused. Thighs are full but not severely swollen, mildly tender when squeezed, calves are not tight or swollen. LE wp and DP pulses intact Neuro: Alert and oriented x 4, face symmetric, moves 4 extremities well Psych: Normal affect and behavior Results & Data Results & Data Vital Signs (Past 12 Hours) Vital Signs Temp Pulse Resp BP Pulse Ox O2 Del Method 09/28/23 14:27 36.8 C 79 18 98/62 L 98 Room Air 09/28/23 07:42 36.8 C 75 18 112/71 96 Room Air PG Care Time/CCT Total # of Minutes Spent Total Time Spent with Patient: Total time spent is greater than 50% in coordination of care (as documented) at patient's floor/unit and/or counseling patient: Coding Level of Care Code 16168 SUB INP/OBS CARE 2/35MIN Diagnoses Rhabdomyolysis M62.82 Elevated LFTs R79.89 Anxiety F41.9
[2023-09-29] MEDS ORDERED: LORazepam 0.5 MG TAB PO STA (00:27)
--- NOTE | 2023-09-29 00:51 | History & Physical Report ---
Date of Service September 29, 2023 Assessment & Plan Admission and Anticipated Discharge Date Admission Date: September 24, 2023 History of Present Illness Primary Care Provider: [facility] Allergies Allergy/AdvReac Type Severity Reaction Status Date / Time Penicillins Allergy Unknown CHILDHOOD Unverified 09/24/23 14:24 ALLERGY Home Medications Medication Instructions Recorded Confirmed Type acetaminophen 500 mg tablet 500 mg PO Q6H PRN Pain 09/24/23 09/24/23 History ibuprofen 200 mg tablet 200 mg PO Q6H PRN Pain 09/24/23 09/24/23 History magnesium 250 mg tablet 250 mg PO DAILY 09/24/23 09/24/23 History Past Med/Surg History Social History Smoking Status: Never smoker Preferred Language: Japanese Communication Ability: Effective Assistive Devices: None Results & Data Results & Data Vital Signs (Past 12 Hours) Vital Signs Temp Pulse Resp BP Pulse Ox O2 Del Method 09/28/23 23:12 36.7 C 86 16 133/87 97 Room Air 09/28/23 14:27 36.8 C 79 18 98/62 L 98 Room Air Code Status & VTE Plan VTE Prophylaxis Plan VTE Prophylaxis will be ordered: Yes
[2023-09-29] MEDS: SODIUM CHLORIDE 0.9% 1,000 ML IV SCH ×4 (03:43→15:50)
[2023-09-29 08:14] LABS: Anion Gap 5 (3-11); BUN Creatinine Ratio 8.8 (10-20); Blood Urea Nitrogen 5 mg/dl (6-23); Calcium 8.7 mg/dl (8.6-10.3); Carbon Dioxide 26 mmol/L (21-32); Chloride 108 mmol/L (98-107); Creatinine Clr Calc Pharmacy 176.1 ml/min; Est GFR (African American) > 150.0 ml/min; Est GFR (Non-African American) 133.5 ml/min; Glucose 94 mg/dl (70-99(Fasting)); Potassium 3.9 mmol/L (3.5-5.1); Sodium 139 mmol/L (136-145)
[2023-09-29 08:33] LABS: Alanine Aminotransferase 215 U/L (7-52); Albumin Globulin Ratio 1.6 (0.9-2); Albumin Level 3.9 gm/dl (3.4-5.0); Alkaline Phosphatase 50 U/L (34-104); Aspartate Aminotransferase 438 U/L (13-39); Bilirubin,Total 1.1 mg/dl (0.2-1.0); Creatine Kinase 14574 U/L (26-192); Globulin 2.5 gm/dl (2.5-4.0); Total Protein 6.4 gm/dl (6.0-8.3)
--- NOTE | 2023-09-29 13:50 | Electrocardiogram Report ---
Test Reason : Blood Pressure : / mmHG Vent. Rate : 088 BPM Atrial Rate : 088 BPM P-R Int : 144 ms QRS Dur : 090 ms QT Int : 352 ms P-R-T Axes : 047 034 024 degrees QTc Int : 425 ms Normal sinus rhythm Normal ECG When compared with ECG of 24-SEP-2023 17:16, Questionable change in QRS axis Nonspecific T wave abnormality no longer evident in Anterior leads Confirmed by Matt Martinez ([id number]) on 09/29/2023 1:49:54 PM Referred By: REFERRED SELF Confirmed By:Matt Martinez
[2023-09-29 14:58] LABS: Pregnancy Test, Urine Negative (Negative)
--- NOTE | 2023-09-29 15:24 | Discharge Summary ---
Date of Service September 29, 2023 Admission HPI Per Admitting Provider Israel is a 18 year old female with no significant PMH who presented to the [facility] ED on 09/24 from [facility] due to concerns for Rhabdomyolysis. She initially presented to [facility] due to progressive muscle aches and hematuria after attending a spinning class earlier this week. She was initially tachycardic at 110 but otherwise stable. Labs were significant for a leukocytosis of 13 with neutrophil count of 10, stable renal function, total bili of 1.6 with direct bili WNL, AST of 679, ALT of 106, total CK pending due to multiple samples that required increased dilution, and UA with brown color, 1-5 granular casts, 1+ bacteria, 5-10 WBC, and 20-30 epithelial cells. Prior to admission the patient was given 1L NSS, 1mg IV ativan, 2 doses 1mg IV dilaudid, and ordred another 1L NSS. At the time of the exam the patient was sitting in bed in no acute distress with her friend sitting bedside. The patient states that she had been in her normal state of health when she went to a spin class on 09/22. She states that this was the first spine class she has attended in approximately 2 years, the class lasted for approximately 45 min. She states that she had what she would consider a normal amount of LE soreness the following day. Over the past 48 hours she has had increased LE pain/cramping. She has been alternating Tylenol/Ibuprofen over the past 48 hours. She had approximately 4-5 doses of 600-1200 mg Acetaminophen over the past 48 hours. This am she developed gross hematuria/brown urine, prompting her to be evaluated at [facility]. She intermittently vapes nicotine cartridges, occasionally smokes Marijuana, and drinks alcohol approximately 1-2 times a month. She denies any alcohol use this week. He LE pain is much improved compared to arrival and she is having consistent urine output at this time. She is prescribed prn Klonopin and Hydroxyzine but has not used either in multiple weeks. She denies current fever, chills, chest pain, SOB, and pain, vomiting, dysuria, diarrhea, melena, and rece nt trauma. Please refer to Dr. Bowen's attestation for any changes to the treatment plan Discharge Data Allergies Allergy/AdvReac Type Severity Reaction Status Date / Time Penicillins Allergy Unknown CHILDHOOD Unverified 09/24/23 14:24 ALLERGY Consultations 09/24/23 16:29 ED Decision to Admit Stat Hospital Course (1) Rhabdomyolysis: severe rhabdomyolysis, induced by overexertion at spin class total CK in ED at least 91,000[place] [id number] with aggressive IV fluids. Had second peak to 90K on 09/26 now quickly downtrending 32K today. creatinine stable was 0.79 at presentation and remains stable at 0.54 today AST and ALT elevation are from the muscle breakdown rather than from liver injury - both improved today. cont IV NS 250 mL/h, target UOP of 200-300 mL/h. currently UOP remains at goal of 200-300/h -monitor BMP and CK - ordered for AM -getting infrequent doses 0.5 mg IV hydromorphone and methocarbamol prn muscle pain, added oxycodone po -no evidence of compartment syndrome -expect CK will be <5000 in 48-72h. may be reasonable to send her home once CK<10,000 if she maintains aggressive hydration -counseled on slow/steady resumption of physical activity in a few weeks once soreness completely resolved (2) Elevated LFTs: AST/ALT elevated from muscle source liver dysfunction occurs in 25% of cases of rhabdomyolysis of concern was taking acetaminophen and bilirubin is mildly elevated. APAP level was not checked on admission. -bili improved to 1.2 today and AST/ALT trending down (3) Anxiety: -Currently denies need for hydroxyzine or Klonopin, will hold for now Plan DVT ppx - SCDs. Ambulating hourly to the bathroom, low risk. Discharge Plan Discharge Items Patient Disposition: Home - Self-Care Reason For Visit: RHABDOMYOLYSIS Discharge Diagnosis: 1. rhabdomyolysis - due to intense exercise - improved; peak CPK level >90,000, now down to 14,574 2. abnormal liver function tests - likely due to #1 - improving Activity: As commented below Activity Comment: LIGHT ACTIVITIES ONLY (walking only); no heavy exertional activities Lifting: No more than 5 pounds Bathing: No limitations Sexual Activity: Wait until after follow-up appointment Exercise/Sports: Wait until after follow-up appointment Driving/Machine Use: Resume 1 day after discharge Non-emergency contact: Primary Care Provider Call non-emergency contact if: you have any medication questions, your symptoms worsen and you have a fever Diet: Regular Ambulatory Orders: Creatine Kinase (Routine) Timeframe: 20231001 Location: Determined by Patient Ordered By: Shivam Concepcion Comprehensive Metabolic Panel (Routine) Timeframe: 20231001 Location: Determined by Patient Ordered By: Shivam Concepcion Addtl Attending Provider Instructions: Ms Modi, You were hospitalized due to rhabdomyolysis (see handout). Rhabdomyolysis occurs when muscle breaks down. This causes a release of a substance called myoglobin into the bloodstream. High levels of myoglobin can damage the kidneys. There are a variety of things that cause rhabdomyolysis including infections (viruses in particular), falls/injuries, intense exercise, seizures, medications, etc. The treatment of rhabdomyolysis is copious hydration by way of IV fluids. The intense exercise you had done a few days before admission was the culprit for this episode. Your CK level, also known as creatine kinase, is a marker of rhabdomyolysis. It was markedly elevated at time of admission to over 90,000. It is now down to <15,000. Recommendations - 1. NO HEAVY exertional activities or heavy lifting. This includes biking/sp inning, exercise classes, weight lifting, heavy lifting at home, running, swimming, etc. Light walks are OK at this time. We will let you know when it is safe to resume normal activities. 2. AVOID ALL FORMS OF ALCOHOL. 3. Have a blood draw THIS 10/01/23, in the morning. These can be drawn at [facility] main lab. These results will be faxed to me and I will let you know how they look. You do not need to fast for this blood draw. The results will dictate when you need the labs repeated. 4. If possible please limit the amount of [id number] acetaminophen (tylenol) and ibuprofen (motrin). If your muscles are sore you can take small amounts of these if necessary. 5. Gentle stretching of your arms & legs is permissible at this time. 6. Once you are cleared to return to normal activities you will need to do the following to prevent another episode of rhabdomyolysis - * Before, during, and after exercise you will need to hydrate well with water. * Before, during, and after exercise you will need to stretch thoroughly. * Finally, you will need to START SLOWLY with any form of activity in the future to avoid over-taxing the muscles. 7. MOST IMPORTANTLY - please drink plenty of fluids over the next week. Let your urine guide your hydration - keep the urine light colored & clear. Ultimately you should be drinking at least 2.5 liters (2500 ml) of water, gatorade, powerade, etc each day to resolve the rhabdomyolysis fully. Follow-up - * see Larissa Lyndsey, physician assistance, in [place] near the hospital * see her within 1 week * please contact her office to set up this appointment * you will need to fill out the new patient forms prior to that appointment and drop those off to the clinic Return to any hospital if - * you have fevers over 100 degrees * you have worsening muscle pain in your legs or arms * you develop swelling in your legs * the whites of your eyes turn yellow * you have abdominal pains, nausea or vomiting * the urine develops a brown or "coke-colored" look to it * any other concerns It was our pleasure to care for you, Dr Concepcion Pending Studies at Discharge: No Stand-Alone Forms: My [facility] mPort, Smoking Cessation Medications and DC Order Prescriptions: Continued magnesium 250 mg Tablet 250 mg PO DAILY acetaminophen 500 mg Tablet 500 mg PO Q6H PRN (Reason: Pain) Qty: 1 0RF Rx Instructions: maximum 2000mg in 24 hours Changed ibuprofen 200 mg Tablet 400 mg PO Q6H PRN (Reason: Pain) Qty: 1 0RF Krames/Other Patient Handouts: Rhabdomyolysis Admission Data Admit Date/Time: 09/24/23 16:48 Attending Provider: Shivam Concepcion Admit Provider: Shivam Bowen Primary Care Provider: [facility] Other Providers: Shivam Bowen Coding Diagnoses Rhabdomyolysis M62.82 Elevated LFTs R79.89 Anxiety F41.9
== END 2023-09-29 18:03 | disposition home or self-care (01) | DRG 558 ==
LOC: ED 13:02 → SUATTDRO 16:48 → 3N 16:48